=== PATIENT | female | born 1995 | race Caucasian/White ===

== ENCOUNTER 2020-03-22 14:27 | Emergency (ER) | payer BC, SELFPAY ==
[2020-03-22 14:29] VITALS: BP 124/84; PULSE 93; RESP 20; TEMP 36.8; O2SAT 100
--- NOTE | 2020-03-22 14:32 | ED.GENADULT ---
HPI - General Adult General Chief complaint: Upper Respiratory Infection Stated complaint: flu like symptoms Time Seen by Provider: 03/22/20 14:32 Source: patient Mode of arrival: ambulatory Limitations: no limitations History of Present Illness HPI narrative: 24-year-old female patient presents to the [facility] with complaints of cold-like symptoms x3 days. Patient states she has had some low-grade fevers, cough, body aches, chills, sore throat and just overall not feeling well. Patient states she has not gotten a flu shot yet this year. Patient states that a coworker of hers was sent home from work a couple of days ago for Covid symptoms but she has not found out if they were positive or negative. Patient denies breast-feeding or at this time. Related Data Home Medications Medication Instructions Recorded Confirmed No Home Medications 03/22/20 03/22/20 Allergies Allergy/AdvReac Type Severity Reaction Status Date / Time No Known Allergies Allergy Verified 03/22/20 14:29 Review of Systems Review of Systems: Narrative: CONSTITUTIONAL: Positive low-grade fever, chills, denies sweats. Positive body aches EYES: Denies visual changes, redness, or discharge. ENT: Denies rhinorrhea, congestion, positive sore throat, denies otalgia. CARDIOVASCULAR: Denies chest pain, palpitations, or edema. RESPIRATORY: Positive cough, denies dyspnea. GASTROINTESTINAL: Denies abdominal pain, nausea, vomiting, or diarrhea. GENITOURINARY: Denies dysuria or hematuria. SKIN: Denies rash or itching. MUSCULOSKELETAL: Denies back pain, joint pain, or myalgia. NEUROLOGIC: Denies headache, numbness, or weakness. PSYCHIATRIC: Denies anxiety or depression. COUNT INCLUDES THE [facility] Past Medical History Medical History (Updated 03/22/20 @ 14:53 by BERKLEY Givens) Asthma Comments At the time of my signature I agree with nursing past medical history, surgical, social, and family history. There is no relevant family history pertinent to the presenting complaint. Exam Narrative: Exam Narrative: GENERAL: Well-appearing, well-nourished, and in no acute distress. HEAD: Normocephalic, atraumatic. EYES: PERRLA and EOMI. ENT: Nares clear, no rhinorrhea or epistaxis. Mucous membranes moist. Bilateral TMs are clear with no erythema or foreign bodies in the canal. Posterior pharynx with no erythema, tonsillectomy, exudates or lesions present. NECK: Supple. No lymphadenopathy CHEST: Clear to auscultation. No respiratory distress. HEART: Regular rate and rhythm. No murmur heard. Normal peripheral pulses. ABDOMEN: Soft, nontender, nondistended, normal active bowel sounds. EXTREMITIES: Normal range of motion. No edema. SKIN: Warm, dry, no rash. NEURO: No focal deficits. Alert and oriented x3. Course Reevaluation(s) Reevaluation #1: Reevaluated patient after her strep and flu had resulted. Discussed them that she is negative for both today. Discussed with her we will send her for Covid testing. Discussed with patient that she needs to remain isolated until she goes and gets her testing continue to remain isolated until she has her results. Discussed with patient that she should isolate from the day of her symptoms for at least 10 days despite being negative or positive. Discussed with patient that she can take [id number] Tylenol, ibuprofen for any fevers body aches or chills as well as any [id number] cold medication for cough, runny nose congestion or any other symptoms. Discussed with patient that she should report to the emergency department if she has severe coughing, shortness of breath chest pain or fevers that are extremely high that do not come down with Tylenol ibuprofen. patient verbalized understanding denies any other questions or concerns at this time. Date: 03/22/20 Time: 15:07 Vital Signs Vital signs: Vital Signs Temperature 36.8 C 03/22/20 14:29 Pulse Rate 93 03/22/20 14:29 Respiratory Rate 20 03/22/20 14:29 Blood Pressu
== END 2020-03-22 17:07 | disposition home or self-care (01) ==
PROVIDERS: Emergency Provider Nurse Practitioner Family
DX: J06.9 Acute upper respiratory infection, unspecified (principal); Z20.828 Contact with and (suspected) exposure to other viral communicable diseases; J45.909 Unspecified asthma, uncomplicated
CPT/HCPCS: 87081; 87804; 87880; 99213; G0463

== ENCOUNTER 2020-03-23 06:53 | Outpatient (NON) | payer BC, SELFPAY ==
[2020-03-25 13:21] LABS: SARS-CoV-2 RNA PCR Positive
== END 2020-03-23 06:54 ==
LOC: ANHCOVIDDT 06:58
PROVIDERS: Visit Provider Nurse Practitioner Family
DX: U07.1 COVID-19 (principal)
CPT/HCPCS: 87635; C9803; U0003